=== PATIENT | male | born 1965 | race Caucasian/White ===

== ENCOUNTER → 2023-09-30 09:45 | Outpatient (REF) | payer OTHER, SELFPAY | LOC: RCS 09:45 | PROVIDERS: ATTENDING PHYSICIAN Internal Medicine Cardiovascular Disease; FAMILY PHYSICIAN Family Medicine | DX: I49.8 Other specified cardiac arrhythmias (principal); R00.2 Palpitations | CPT/HCPCS: 93225; 93226 ==

== ENCOUNTER 2024-05-14 19:03 | Emergency (ER) | payer OTHER, SELFPAY ==
[2024-05-14 19:16] VITALS: BP 121/88
[2024-05-14 19:36] LABS: % Basophils 0.4 % (0-2); % Eosinophils 1.4 % (0-6); % Immature Granulocytes 0.6 % (0-0.5); % Lymphocytes 10.3 % (20.5-51.1); % Monocytes 6.1 % (1.7-9.3); % Neutrophils 81.2 % (42.2-75.2); Absolute Eosinophils 0.1 10^3/uL (0-0.7); Absolute Immature Granulocytes 0.1 10^3/uL (0-0.05); Absolute Lymphocytes 0.8 10^3/uL (1.2-3.4); Absolute Monocytes 0.5 10^3/uL (0.1-0.6); Absolute Neutrophils 6.4 10^3/uL (1.4-6.5); Hematocrit 44.4 % (39.0-52.0); Hemoglobin 15.6 g/dL (13.0-18.0); Mean Corp Hgb Conc. 35.1 g/dL (33.0-37.0); Mean Corpuscular Hgb 31.4 pg (27.0-31.0); Mean Corpuscular Volume 89.3 fL (80.0-94.0); Mean Platelet Volume 9.9 fL (7.4-10.4); Nucleated Red Blood Cells % 0 % (-); Platelet Count 175 10^3/uL (130-400); Red Blood Cell Count 4.97 10^6/uL (4.70-6.10); Red Cell Dist. Width 13.1 % (11.5-14.5); White Blood Cell Count 7.9 10^3/uL (4.8-10.8)
[2024-05-14 19:50] LABS: ALT (SGPT) 24 U/L (0-50); AST (SGOT) 21 U/L (17-59); Albumin 4.3 g/dl (3.5-5.0); Alkaline Phosphatase 56 U/L (38-126); Blood Urea Nitrogen 17 mg/dl (9-20); Calcium 8.3 mg/dl (8.4-10.2); Carbon Dioxide 23 mmol/L (22-30); Chloride 99 mmol/L (98-107); Glucose 207 mg/dl (70-99); Potassium 4.4 mmol/L (3.5-5.1); Sodium 131 mmol/L (135-145); Total Bilirubin 0.8 mg/dl (0.2-1.3); Total Protein 6.6 g/dl (6.3-8.2); eGFR > 60.00
[2024-05-14 20:04] LABS: COVID-19 Antigen Negative (Negative)
--- NOTE | 2024-05-14 22:42 | ED.MUSCINJ ---
HPI-Injury
General
Chief Complaint: Fall
Source: patient
Exam Limitations: none
Time Seen by Provider: 05/14/24 22:24
History of Present Illness-Injury
Initial Injury comments:
58-year-old male presents for evaluation of head injury sustained 2 nights ago. He slipped on the ice hitting his head. He was somewhat confused afterwards he repeated himself that evening quite frequently. He presents today due to ongoing
headache. He also had diarrhea and vomiting with low-grade fever yesterday into last night. He states his is sick with similar symptoms. He is not anticoagulated. He has been using Tylenol or IBU
Past History
Past History
ED Past Medical History: HTN, NIDDM and Other (Kidney stones)
ED Past Surgical History: Other (inguinal hernia repair)
Social History
Tobacco: Non-smoker
Personal:
Living: with family
Employment: Employed
Phy Exam
Physical Exam
Physical Exam:
General: Well-appearing male no acute respiratory distress
HEENT: Normocephalic pupils equal round reactive to light no scalp abrasion or hematoma
Heart: Regular rate and rhythm no murmurs
Lungs: Clear no wheeze
Neurologic exam: Alert and oriented no facial asymmetry no drift on exam good strength to the upper and lower extremities conversing appropriately
Musculoskeletal exam: Cervical spine is nontender
Abdomen is soft nontender nondistended
Injury Course
Orders/Labs/Results
Orders:
Orders
05/14/24 19:[address] [CT Head W/o Iv Contrast] Urgent
Comment:
Reason For Exam: fall
05/14/24 19:27
COVID-19 Antigen Urgent
Source: Nasal Swab
INF RAPID [Influenza A+B Rapid Molecular] Urgent
[facility] Source: Nasal Swab
Specimen Description:
05/14/24 19:29
Complete Blood Count/With Diff Urgent
Comprehensive Metabolic Panel Urgent
Abnormal Lab Results
05/14/24
19:29
MCH 31.4 H pg
(27.0-31.0)
Abs Immat Gran (auto) 0.1 H 10^3/uL
(0-0.05)
Absolute Lymphs (auto) 0.8 L 10^3/uL
(1.2-3.4)
Immature Gran % 0.6 H %
(0-0.5)
Neutrophils % 81.2 H %
(42.2-75.2)
Lymphocytes % 10.3 L %
(20.5-51.1)
Sodium 131 L mmol/L
(135-145)
Glucose 207 H mg/dl
(70-99)
Calcium 8.3 L mg/dl
(8.4-10.2)
05/14/24 19:29
05/14/24 19:29
MDM/Problems Addressed
Differential Diagnosis Includes:
Patient here for evaluation of head injury. He notes ongoing headache after fall [address] of the head was ordered to evaluate for fracture or hematoma. This was negative for acute finding. He describes diarrhea and vomiting with low-grade
fever. Unlikely that this is all related to the concussion. Suspect possible viral illness. Abdomen exam is benign no indication for any imaging of his abdomen. Reviewed lab work which included COVID and flu which were negative.
No indication for admission. Stable for discharge
*Critical Care Note
Total Time (30-74mins, 75-104mins- exclusive of procedures): Not Applicable
ED Attending Note
-
Portions of this chart may have been created with voice recognition software.� Occasional wrong word or��sound alike� substitutions may have occurred due to the inherent limitations of voice recognition software.
Discharge Plan
Departure
Patient Disposition: Home (Routine Discharge)
Date of Disposition: 05/14/24
Time of Disposition: 22:46
Patient with high blood pressure during this ER visit?: No
Discharge Problem:
Head injury
Instructions: Concussion, Adult (DC)
Prescriptions:
No Action
atorvastatin 10 MG tablet
10 mg PO QPM
Diovan
1 tab PO DAILY
Patient Comments:
Pt does not know dose.
METFORMIN HCl
1 tab PO BID
Wellbutrin
1 tab PO BID
oxycodone-acetaminophen 5 MG/325 MG tablet
1 tab PO Q4HPRN PRN (Reason: pain) Qty: 20 0RF
cephalexin 500 MG capsule
500 mg PO QID Qty: 14 0RF
tamsulosin 0.4 MG capsule
0.4 mg PO DAILY Qty: 4 0RF
acetaminophen-codeine 1 TABLET tablet
1 tab PO Q4HPRN PRN (Reason: pain) Qty: 20 0RF
Activity Restrictions/Additional Instructions:
Rest. Drink plenty of fluids. Use ibuprofen or Tylenol for pain. return if worse otherwise follow-up with family doctor
Interventions
Interventions:
*Risk Screen - Suicide Last Done: 05/14/24 19:16
*General Assessment Last Done: 05/14/24 23:12
*Neglect/Abuse Screening Last Done: 05/14/24 23:09
*ED COVID-19 Vaccine History Last Done: 05/14/24 19:16
*Nursing Disposition Last Done: 05/14/24 23:12
ED-Musculoskeletal Assessment Last Done: 05/14/24 23:12
ED- Neurological Assessment Last Done: 05/14/24 23:10
Discharge Date and Time
Discharge Date/Time: 05/14/24 23:14
Print Language: SWEDISH
== END 2024-05-14 23:14 | disposition home or self-care (01) ==
LOC: EMR 19:03
PROVIDERS: Emergency Medicine; EMERGENCY PHYSICIAN Student in an Organized Health Care Education/Training Program; FAMILY PHYSICIAN Family Medicine
DX: S09.90XA Unspecified injury of head, initial encounter (principal); W00.0XXA Fall on same level due to ice and snow, initial encounter; I10 Essential (primary) hypertension; E11.9 Type 2 diabetes mellitus without complications
CPT/HCPCS: 99284; 70450; 80053; 85025; 87502; 87811